=== PATIENT | female | born 1990 ===

== ENCOUNTER 2022-10-29 11:57 | Outpatient (CLI) | payer OTHER | END 2022-10-29 13:25 | disposition home or self-care (01) | LOC: PRENATAL 11:57 | PROVIDERS: ATTEND Obstetrics & Gynecology Maternal & Fetal Medicine | DX: O36.80X0 Pregnancy with inconclusive fetal viability, not applicable or unspecified (principal); O26.20 Pregnancy care for patient with recurrent pregnancy loss, unspecified trimester; O09.529 Supervision of elderly multigravida, unspecified trimester; Z3A.12 12 weeks gestation of pregnancy ==